=== PATIENT | male | born 1965 | race Caucasian/White ===

== ENCOUNTER 2024-11-20 07:44 | Day surgery (SDC) | payer BC, OTHER ==
[2024-11-20] MEDS: Lactated Ringers 1,000 ML IV SCH (08:06)
[2024-11-20] MEDS ORDERED: Propofol 200 MG/20 ML SDV ONE ×2 (08:23→09:43)
[2024-11-20] MEDS ORDERED: fentaNYL 100 MCG/2 ML SDV ONE (08:23)
[2024-11-20] MEDS ORDERED: Midazolam 1 MG/ML 2 ML SDV ONE (08:23)
== END 2024-11-20 10:49 | disposition home or self-care (01) ==
LOC: VM.SDS 07:44
PROVIDERS: ATTEND Family Medicine
DX: Z12.11 Encounter for screening for malignant neoplasm of colon (principal); D12.0 Benign neoplasm of cecum; D12.6 Benign neoplasm of colon, unspecified; D12.8 Benign neoplasm of rectum; K57.30 Diverticulosis of large intestine without perforation or abscess without bleeding; E11.9 Type 2 diabetes mellitus without complications; I10 Essential (primary) hypertension; E78.00 Pure hypercholesterolemia, unspecified; G47.33 Obstructive sleep apnea (adult) (pediatric); Z79.899 Other long term (current) drug therapy
CPT/HCPCS: 82947; J2250; J2704; J3010; J7120